=== PATIENT | female | born 1960 | race Hispanic/Latino ===

== ENCOUNTER 2018-02-05 08:29 | Emergency (ER) | payer OTHER ==
[~2018-02-05] VITALS: Ht 162.6 cm; Wt 97.5 kg
[~2018-02-05 08:29] MED LIST: CYMBALTA60 MG PO; PROGESTERONE100 MG PO; TEGRETOL200 MG PO; Z ARMOUR THYROID PO; Z.0.ATENOLOL25 MG PO; Z.0.LEXAPRO10 MG PO; Z.0.PROTONIX40 MG PO; diovan PO
[2018-02-05] MEDS ORDERED: KETOROLAC TROMETHAMINE 60 MG/2 ML VIAL IM ONE (09:15)
[2018-02-05 11:00] VITALS: BP 142/80
== END 2018-02-05 11:06 | disposition home or self-care (01) ==
LOC: ER 08:29
DX: M54.2 Cervicalgia (principal); S16.1XXA Strain of muscle, fascia and tendon at neck level, initial encounter; M54.5 Low back pain; V43.62XA Car passenger injured in collision with other type car in traffic accident, initial encounter; Y92.488 Other paved roadways as the place of occurrence of the external cause
CPT/HCPCS: 99282; J1885

== ENCOUNTER 2021-09-06 15:01 | Inpatient (IN) | payer OTHER ==
[~2021-09-06] VITALS: Ht 162.6 cm; Wt 95.7 kg
[~2021-09-06 15:01] MED LIST changes: +LOSARTAN POTASS25 MG PO; +NATURE-THROID97.5 MG PO
[2021-09-06] MEDS ORDERED: SODIUM CHLORIDE 0.9% 1000ML 1,000 ML IV STA (15:29)
[2021-09-06 15:51] LABS: BASOPHILS % 0.2 % (0.0-1.0); EOSINOPHILS # (AUTO) 0.1 (0.0-0.4); EOSINOPHILS % 1.5 % (0.0-6.0); HEMATOCRIT 38.1 % (34.2-44.1); HEMOGLOBIN 12.5 g/dL (12.0-16.0); LYMPHOCYTES # (AUTO) 1.3 (1.0-3.2); LYMPHOCYTES % 15.2 % (18.0-39.1); MEAN CORPUSCULAR HEMOGLOBIN 29.2 pg (28-32); MEAN CORPUSCULAR HGB CONC 32.8 g/dL (31-35); MONOCYTES # (AUTO) 0.7 (0.2-0.8); MONOCYTES % 8.5 % (4.4-11.3); NEUTROPHILS # (AUTO) 6.4 (2.1-6.9); NEUTROPHILS % 74.3 % (38.7-80.0); PLATELET COUNT 357 x10e3/uL (140-360); RED BLOOD COUNT 4.28 x10e6/uL (3.6-5.1); RED CELL DISTRIBUTION WIDTH 13.1 % (11.7-14.4)
[2021-09-06 16:02] LABS: INR 1.04; PROTHROMBIN TIME 14.4 seconds (11.9-14.5)
[2021-09-06 16:03] LABS: PARTIAL THROMBOPLASTIN TIME 40.3 seconds (23.8-35.5)
[2021-09-06 16:11] LABS: ALANINE AMINOTRANSFERASE 26 IU/L (0-55); ALBUMIN 3.1 g/dL (3.5-5.0); ALBUMIN/GLOBULIN RATIO 0.8 (0.8-2.0); ALKALINE PHOSPHATASE 121 IU/L (40-150); ANION GAP 12.6 mmol/L (8-16); BLOOD UREA NITROGEN 5 mg/dL (7-26); BUN/CREATININE RATIO 9 (6-25); CALCIUM 9.3 mg/dL (8.4-10.2); CARBON DIOXIDE 26 mmol/L (22-29); CHLORIDE 103 mmol/L (98-107); CREATINE KINASE 19 IU/L (29-168); CREATININE, SERUM 0.56 mg/dL (0.57-1.11); EST GLOMERULAR FILTRATION RATE 109 ML/MIN (60-); GLUCOSE 97 mg/dL (74-118); LIPASE 6 U/L (8-78); MAGNESIUM 1.9 MG/DL (1.3-2.1); POTASSIUM 3.6 mmol/L (3.5-5.1); SODIUM 138 mmol/L (136-145)
[2021-09-06] MEDS ORDERED: ONDANSETRON HCL INJ 2MG/ML 2ML 2 MG/ML VIAL IV STA (17:18)
[2021-09-06] MEDS ORDERED: Morphine 4mg Syringe 4 MG/ML INJ IV ONE (17:30)
[2021-09-06] MEDS ORDERED: SODIUM CHLORIDE 0.9% 50ML 50 ML ONE (17:39)
[2021-09-06] MEDS ORDERED: IOPAMIDOL 370 MG/ML 200 ML INFUS..BTL INJ ONE ×2 (17:40→21:59)
[2021-09-06 18:39] LABS: CLARITY,URINE CLEAR (CLEAR); COLOR,URINE YELLOW (YELLOW); KETONES,URINE NEGATIVE (NEGATIVE); LEUKOCYTE ESTERASE ,URINE NEGATIVE (NEGATIVE); NITRITE,URINE NEGATIVE (NEGATIVE); PROTEIN,URINE DIPSTICK NEGATIVE (NEGATIVE); URINE UROBILINOGEN 1 mg/dL (0.2 - 1)
[2021-09-06 18:51] LABS: RBC,URINE 0-5 /HPF (0-5)
[2021-09-06 20:55] VITALS: BP 136/89
[2021-09-06] MEDS: Morphine 4mg Syringe 4 MG/ML INJ IV PRN (20:55)
[2021-09-06] MEDS: SODIUM CHLORIDE 0.9% 1000ML 1,000 ML IV SCH (21:10)
[2021-09-06 21:12] VITALS: BP 136/89
[2021-09-06] MEDS ORDERED: HYDROMORPHONE 1MG/1ML INJ IV ONE (22:15)
[2021-09-06 23:56] VITALS: BP 136/89
[2021-09-07] VITALS (10 sets, daily range): BP systolic 118–143; BP diastolic 71–85
[2021-09-07] MEDS ORDERED: BISACODYL 5 MG TAB EC PO ONE ×2 (00:30)
[2021-09-07] MEDS ORDERED: PANTOPRAZOLE SO40 MG PO (00:33)
[2021-09-07] MEDS ORDERED: HYDROCODON-ACE1 EAC9 PO (00:37)
[2021-09-07] MEDS ORDERED: LEVOFLOXACIN250 MG PO (00:37)
[2021-09-07] MEDS ORDERED: BENICAR20 MG PO (00:37)
[2021-09-07] MEDS ORDERED: NP THYROID60 MG PO (00:37)
[2021-09-07] MEDS ORDERED: SENEXON-S 50-81 EACH PO (00:37)
[2021-09-07] MEDS: HYDROMORPHONE 1MG/1ML INJ IV PRN ×5 (03:00→23:38)
[2021-09-07] MEDS: SODIUM CHLORIDE 0.9% 1000ML 1,000 ML IV SCH ×3 (03:21→22:03)
[2021-09-07] MEDS: ONDANSETRON HCL INJ 2MG/ML 2ML 2 MG/ML VIAL IV PRN ×2 (03:26→20:44)
[2021-09-07 05:36] LABS: BASOPHILS % 0.1 % (0.0-1.0); EOSINOPHILS # (AUTO) 0.1 (0.0-0.4); EOSINOPHILS % 1.7 % (0.0-6.0); HEMATOCRIT 37.7 % (34.2-44.1); LYMPHOCYTES # (AUTO) 0.9 (1.0-3.2); LYMPHOCYTES % 11.7 % (18.0-39.1); MEAN CORPUSCULAR HEMOGLOBIN 28.6 pg (28-32); MEAN CORPUSCULAR HGB CONC 31.8 g/dL (31-35); MONOCYTES # (AUTO) 0.7 (0.2-0.8); MONOCYTES % 8.9 % (4.4-11.3); NEUTROPHILS % 77.1 % (38.7-80.0); PLATELET COUNT 328 x10e3/uL (140-360); RED BLOOD COUNT 4.19 x10e6/uL (3.6-5.1)
[2021-09-07 06:02] LABS: ALANINE AMINOTRANSFERASE 19 IU/L (0-55); ALBUMIN 2.6 g/dL (3.5-5.0); ALBUMIN/GLOBULIN RATIO 0.7 (0.8-2.0); ALKALINE PHOSPHATASE 115 IU/L (40-150); ANION GAP 14.3 mmol/L (8-16); BLOOD UREA NITROGEN < 5 mg/dL (7-26); CALCIUM 9.1 mg/dL (8.4-10.2); CARBON DIOXIDE 22 mmol/L (22-29); CHLORIDE 106 mmol/L (98-107); EST GLOMERULAR FILTRATION RATE 125 ML/MIN (60-); GLUCOSE 97 mg/dL (74-118); POTASSIUM 3.3 mmol/L (3.5-5.1); SODIUM 139 mmol/L (136-145)
[2021-09-07 06:14] LABS: BUN/CREATININE RATIO 10 (6-25)
[2021-09-07] MEDS: Morphine 4mg Syringe 4 MG/ML INJ IV PRN ×2 (06:39→20:44)
[2021-09-07] MEDS ORDERED: POTASSIUM CHLORIDE 20 MEQ TAB CR PO ONE (10:00)
[2021-09-07 16:07] LABS: BODY FLUID COLOR YELLOW; BODY FLUID TYPE PERITONEAL
[2021-09-07 16:09] LABS: BODY FLUID APPEARANCE CLOUDY; RBC,BODY FLUID 1000 cells/uL; WBC,BODY FLUID 2779 cells/uL
[2021-09-07 16:58] LABS: LYMPHOCYTES,BODY FLUID 27 %; MONO/MACROPHG,BODY FLUID 24 %; NEUTROPHILS,BODY FLUID 44 %; OTHER CELLS,BODY FLUID 5 %
[2021-09-07] MEDS ORDERED: CEFTRIAXONE 1 GM in SODIUM CHLORIDE 0.9% 50ML 50 ML IV ONE (23:00)
[2021-09-08] VITALS (7 sets, daily range): BP systolic 142–157; BP diastolic 82–92
[2021-09-08] MEDS: SODIUM CHLORIDE 0.9% 1000ML 1,000 ML IV SCH ×3 (02:53→20:51)
[2021-09-08] MEDS: HYDROMORPHONE 1MG/1ML INJ IV PRN ×5 (04:28→22:04)
[2021-09-08 05:56] LABS: ALANINE AMINOTRANSFERASE 13 IU/L (0-55); ALBUMIN 2.2 g/dL (3.5-5.0); ALBUMIN/GLOBULIN RATIO 0.7 (0.8-2.0); ALKALINE PHOSPHATASE 98 IU/L (40-150); ANION GAP 9.3 mmol/L (8-16); BUN/CREATININE RATIO 11 (6-25); CALCIUM 8.5 mg/dL (8.4-10.2); CARBON DIOXIDE 25 mmol/L (22-29); CHLORIDE 109 mmol/L (98-107); CREATININE, SERUM 0.47 mg/dL (0.57-1.11); EST GLOMERULAR FILTRATION RATE 134 ML/MIN (60-); GLUCOSE 105 mg/dL (74-118); POTASSIUM 3.3 mmol/L (3.5-5.1); SODIUM 140 mmol/L (136-145)
[2021-09-08 06:13] LABS: BLOOD UREA NITROGEN < 5 mg/dL (7-26)
[2021-09-08] MEDS ORDERED: NP THYROID60 MG PO (09:40)
[2021-09-08] MEDS: CEFTRIAXONE 1 GM in SODIUM CHLORIDE 0.9% 50ML 50 ML IV SCH ×2 (09:43→21:00)
[2021-09-08] MEDS: ONDANSETRON HCL INJ 2MG/ML 2ML 2 MG/ML VIAL IV PRN ×3 (09:49→18:04)
[2021-09-08] MEDS ORDERED: PANTOPRAZOLE SOD 40 MG TABEC PO SCH (17:00)
[2021-09-09] VITALS (7 sets, daily range): BP systolic 112–150; BP diastolic 58–88
[2021-09-09] MEDS ORDERED: BISACODYL 5 MG TAB EC PO ONE ×2 (01:30→01:50)
[2021-09-09] MEDS ORDERED: POTASSIUM CHLORIDE 10MEQ EA PO STA (01:34)
[2021-09-09] MEDS: HYDROMORPHONE 1MG/1ML INJ IV PRN ×7 (02:19→23:40)
[2021-09-09] MEDS: SODIUM CHLORIDE 0.9% 1000ML 1,000 ML IV SCH ×3 (03:00→21:21)
[2021-09-09] MEDS ORDERED: POTASSIUM CHLORIDE 10MEQ EA PO SCH (03:45)
[2021-09-09 05:49] LABS: BASOPHILS % 0.1 % (0.0-1.0); EOSINOPHILS # (AUTO) 0.2 (0.0-0.4); EOSINOPHILS % 2.1 % (0.0-6.0); HEMATOCRIT 36.9 % (34.2-44.1); LYMPHOCYTES # (AUTO) 1.1 (1.0-3.2); LYMPHOCYTES % 13.3 % (18.0-39.1); MEAN CORPUSCULAR HEMOGLOBIN 28.8 pg (28-32); MEAN CORPUSCULAR HGB CONC 32.5 g/dL (31-35); MEAN CORPUSCULAR VOLUME 88.7 fL (81-99); MONOCYTES # (AUTO) 0.8 (0.2-0.8); MONOCYTES % 9.3 % (4.4-11.3); PLATELET COUNT 382 x10e3/uL (140-360); RED BLOOD COUNT 4.16 x10e6/uL (3.6-5.1); RED CELL DISTRIBUTION WIDTH 12.6 % (11.7-14.4)
[2021-09-09 06:12] LABS: ALANINE AMINOTRANSFERASE 11 IU/L (0-55); ALBUMIN 2.3 g/dL (3.5-5.0); ALBUMIN/GLOBULIN RATIO 0.7 (0.8-2.0); ALKALINE PHOSPHATASE 110 IU/L (40-150); ANION GAP 11.3 mmol/L (8-16); CALCIUM 8.9 mg/dL (8.4-10.2); CARBON DIOXIDE 25 mmol/L (22-29); CHLORIDE 107 mmol/L (98-107); CREATININE, SERUM 0.47 mg/dL (0.57-1.11); EST GLOMERULAR FILTRATION RATE 134 ML/MIN (60-); GLUCOSE 106 mg/dL (74-118); POTASSIUM 3.3 mmol/L (3.5-5.1); SODIUM 140 mmol/L (136-145)
[2021-09-09 06:16] LABS: BLOOD UREA NITROGEN < 2 mg/dL (7-26); BUN/CREATININE RATIO 4 (6-25)
[2021-09-09] MEDS: THYROID 60 MG TAB PO SCH (06:24)
[2021-09-09] MEDS: LACTULOSE SYRUP 20 GM/30 ML UDC PO PRN (06:44)
[2021-09-09] MEDS: NON-FORMULARY MEDICATION (Progesterone,Micronized (Progesterone) 200 MG) PO SCH (09:00)
[2021-09-09] MEDS ORDERED: POTASSIUM CHLORIDE 20 MEQ TAB CR PO NR ×3 (10:00→15:00)
[2021-09-09] MEDS ORDERED: SIMETHICONE 80 MG CHEW PO NR (10:00)
[2021-09-09] MEDS ORDERED: BISACODYL 5 MG TAB EC PO NR (10:00)
[2021-09-09] MEDS: CEFTRIAXONE 1 GM in SODIUM CHLORIDE 0.9% 50ML 50 ML IV SCH ×2 (10:01→21:00)
[2021-09-09] MEDS: DULOXETINE HCL 30 MG DELAYED RELEASE PO SCH (10:01)
[2021-09-09] MEDS: OLMESARTAN 20 MG TAB PO SCH (10:01)
[2021-09-09] MEDS: ONDANSETRON HCL INJ 2MG/ML 2ML 2 MG/ML VIAL IV PRN ×5 (11:20→23:40)
[2021-09-09] MEDS ORDERED: DIATRIZOATE MEGL/DIATRIZOA SOD 30 ML BTL PO ONE (17:06)
[2021-09-09] MEDS ORDERED: IOPAMIDOL 370 MG/ML 200 ML INFUS..BTL INJ ONE (23:51)
[2021-09-09] MEDS ORDERED: SODIUM CHLORIDE 0.9% 50ML 50 ML ONE (23:51)
[2021-09-10] VITALS (7 sets, daily range): BP systolic 112–143; BP diastolic 61–99
[2021-09-10] MEDS: SIMETHICONE 80 MG CHEW PO SCH ×3 (04:04→17:50)
[2021-09-10] MEDS: ONDANSETRON HCL INJ 2MG/ML 2ML 2 MG/ML VIAL IV PRN ×5 (04:04→20:01)
[2021-09-10] MEDS: HYDROMORPHONE 1MG/1ML INJ IV PRN ×5 (04:04→20:00)
[2021-09-10 05:56] LABS: BASOPHILS % 0.3 % (0.0-1.0); EOSINOPHILS # (AUTO) 0.1 (0.0-0.4); EOSINOPHILS % 1.7 % (0.0-6.0); HEMATOCRIT 33.9 % (34.2-44.1); LYMPHOCYTES # (AUTO) 1.1 (1.0-3.2); LYMPHOCYTES % 13.8 % (18.0-39.1); MEAN CORPUSCULAR HEMOGLOBIN 28.9 pg (28-32); MEAN CORPUSCULAR HGB CONC 32.4 g/dL (31-35); MEAN CORPUSCULAR VOLUME 89.2 fL (81-99); MONOCYTES # (AUTO) 0.7 (0.2-0.8); MONOCYTES % 9.7 % (4.4-11.3); NEUTROPHILS # (AUTO) 5.7 (2.1-6.9); NEUTROPHILS % 74.2 % (38.7-80.0); PLATELET COUNT 400 x10e3/uL (140-360); RED CELL DISTRIBUTION WIDTH 12.6 % (11.7-14.4)
[2021-09-10] MEDS: THYROID 60 MG TAB PO SCH (06:00)
[2021-09-10 06:57] LABS: ANION GAP 13.6 mmol/L (8-16); CALCIUM 8.5 mg/dL (8.4-10.2); CARBON DIOXIDE 23 mmol/L (22-29); CHLORIDE 105 mmol/L (98-107); CREATININE, SERUM 0.47 mg/dL (0.57-1.11); EST GLOMERULAR FILTRATION RATE 134 ML/MIN (60-); GLUCOSE 96 mg/dL (74-118); POTASSIUM 3.6 mmol/L (3.5-5.1); SODIUM 138 mmol/L (136-145)
[2021-09-10 07:14] LABS: BUN/CREATININE RATIO 11 (6-25)
[2021-09-10 07:15] LABS: BLOOD UREA NITROGEN < 5 mg/dL (7-26)
[2021-09-10] MEDS ORDERED: SODIUM CHLORIDE 0.9% 250ML 0 ML ONE (08:01)
[2021-09-10] MEDS: CEFTRIAXONE 1 GM in SODIUM CHLORIDE 0.9% 50ML 50 ML IV SCH ×2 (08:21→20:00)
[2021-09-10] MEDS: NON-FORMULARY MEDICATION (Progesterone,Micronized (Progesterone) 200 MG) PO SCH (08:21)
[2021-09-10] MEDS: FUROSEMIDE INJ 10 MG/ML 4 ML VIAL IV SCH (08:21)
[2021-09-10] MEDS: DULOXETINE HCL 30 MG DELAYED RELEASE PO SCH (08:22)
[2021-09-10] MEDS: OLMESARTAN 20 MG TAB PO SCH (08:22)
[2021-09-10] MEDS: ACETAMINOPHEN 325 MG TAB PO PRN (11:54)
[2021-09-10] MEDS ORDERED: ACETAMINOPHEN 325 MG TAB ONE (11:58)
[2021-09-10] MEDS: LEVOFLOXACIN 500MG/D5W 100ML 100 ML IV SCH (14:26)
[2021-09-10] MEDS: BISACODYL 10 MG SUPP PR SCH (20:00)
[2021-09-11] VITALS (9 sets, daily range): BP systolic 99–128; BP diastolic 60–87
[2021-09-11] MEDS: SIMETHICONE 80 MG CHEW PO SCH ×4 (00:14→17:15)
[2021-09-11 00:19] LABS: CLARITY,URINE SL CLOUDY (CLEAR); COLOR,URINE YELLOW (YELLOW)
[2021-09-11 00:20] LABS: BACTERIA,URINE FEW /HPF; EPITHELIAL CELLS,URINE FEW /LPF; KETONES,URINE NEGATIVE (NEGATIVE); LEUKOCYTE ESTERASE ,URINE 1+ (NEGATIVE); NITRITE,URINE NEGATIVE (NEGATIVE); PROTEIN,URINE DIPSTICK NEGATIVE (NEGATIVE); RBC,URINE 0-5 /HPF (0-5); RENAL EPITHELIAL CELLS,URINE FEW; URINE UROBILINOGEN 1 mg/dL (0.2 - 1); WBC,URINE (MAN) 21-50 /HPF (0-5)
[2021-09-11] MEDS: HYDROMORPHONE 1MG/1ML INJ IV PRN ×5 (01:55→21:20)
[2021-09-11] MEDS: ONDANSETRON HCL INJ 2MG/ML 2ML 2 MG/ML VIAL IV PRN ×3 (01:55→21:20)
[2021-09-11] MEDS: THYROID 60 MG TAB PO SCH (04:22)
[2021-09-11] MEDS: BISACODYL 10 MG SUPP PR SCH (08:00)
[2021-09-11] MEDS: CEFTRIAXONE 1 GM in SODIUM CHLORIDE 0.9% 50ML 50 ML IV SCH (08:45)
[2021-09-11] MEDS: FUROSEMIDE INJ 10 MG/ML 4 ML VIAL IV SCH (08:45)
[2021-09-11] MEDS: DULOXETINE HCL 30 MG DELAYED RELEASE PO SCH (08:50)
[2021-09-11] MEDS: NON-FORMULARY MEDICATION (Progesterone,Micronized (Progesterone) 200 MG) PO SCH (09:00)
[2021-09-11] MEDS: OLMESARTAN 20 MG TAB PO SCH (09:00)
[2021-09-11] MEDS: LEVOFLOXACIN 500MG/D5W 100ML 100 ML IV SCH (13:12)
[2021-09-11 17:22] LABS: BODY FLUID COLOR STRAW; BODY FLUID TYPE PERITONEAL
[2021-09-11 17:23] LABS: BODY FLUID APPEARANCE CLOUDY
[2021-09-11 17:46] LABS: BODY FLUID APPEARANCE SL.CLOUDY; BODY FLUID COLOR STRAW; BODY FLUID TYPE PLEURAL
[2021-09-11 18:02] LABS: RBC,BODY FLUID 2000 cells/uL; WBC,BODY FLUID 2815 cells/uL
[2021-09-11 18:10] LABS: RBC,BODY FLUID 1000 cells/uL; WBC,BODY FLUID 738 cells/uL
[2021-09-11 20:04] LABS: LYMPHOCYTES,BODY FLUID 34 %; MONO/MACROPHG,BODY FLUID 53 %; NEUTROPHILS,BODY FLUID 2 %; OTHER CELLS,BODY FLUID 11 %
[2021-09-11 20:42] LABS: LYMPHOCYTES,BODY FLUID 33 %; MONO/MACROPHG,BODY FLUID 16 %; NEUTROPHILS,BODY FLUID 51 %
[2021-09-11] MEDS: MEROPENEM 500 MG in SODIUM CHLORIDE 0.9% 50ML 50 ML IV SCH (22:00)
[2021-09-12 04:59] VITALS: BP 131/69
[2021-09-12] MEDS: ONDANSETRON HCL INJ 2MG/ML 2ML 2 MG/ML VIAL IV PRN ×2 (05:15→22:15)
[2021-09-12] MEDS: HYDROMORPHONE 1MG/1ML INJ IV PRN ×4 (05:15→22:15)
[2021-09-12] MEDS: SIMETHICONE 80 MG CHEW PO SCH ×4 (05:30→17:16)
[2021-09-12] MEDS: THYROID 60 MG TAB PO SCH (05:30)
[2021-09-12] MEDS: MEROPENEM 500 MG in SODIUM CHLORIDE 0.9% 50ML 50 ML IV SCH ×2 (05:30→14:42)
[2021-09-12 06:03] LABS: BASOPHILS % 0.1 % (0.0-1.0); EOSINOPHILS # (AUTO) 0.1 (0.0-0.4); EOSINOPHILS % 1.3 % (0.0-6.0); HEMATOCRIT 37.4 % (34.2-44.1); HEMOGLOBIN 12.4 g/dL (12.0-16.0); LYMPHOCYTES # (AUTO) 1.2 (1.0-3.2); LYMPHOCYTES % 14.5 % (18.0-39.1); MEAN CORPUSCULAR HEMOGLOBIN 28.8 pg (28-32); MEAN CORPUSCULAR HGB CONC 33.2 g/dL (31-35); MEAN CORPUSCULAR VOLUME 86.8 fL (81-99); MONOCYTES # (AUTO) 0.9 (0.2-0.8); MONOCYTES % 10.5 % (4.4-11.3); NEUTROPHILS % 73.1 % (38.7-80.0); PLATELET COUNT 442 x10e3/uL (140-360); RED BLOOD COUNT 4.31 x10e6/uL (3.6-5.1); RED CELL DISTRIBUTION WIDTH 12.4 % (11.7-14.4)
[2021-09-12 06:38] LABS: ALANINE AMINOTRANSFERASE 7 IU/L (0-55); ALBUMIN 2.3 g/dL (3.5-5.0); ALBUMIN/GLOBULIN RATIO 0.7 (0.8-2.0); ALKALINE PHOSPHATASE 113 IU/L (40-150); ANION GAP 14.4 mmol/L (8-16); BLOOD UREA NITROGEN < 5 mg/dL (7-26); CARBON DIOXIDE 28 mmol/L (22-29); CHLORIDE 97 mmol/L (98-107); CREATININE, SERUM 0.53 mg/dL (0.57-1.11); EST GLOMERULAR FILTRATION RATE 117 ML/MIN (60-); GLUCOSE 107 mg/dL (74-118); POTASSIUM 3.4 mmol/L (3.5-5.1); SODIUM 136 mmol/L (136-145)
[2021-09-12 06:45] LABS: BUN/CREATININE RATIO 9 (6-25)
[2021-09-12 08:03] VITALS: BP 100/61
[2021-09-12 08:04] VITALS: BP 100/61
[2021-09-12 08:26] LABS: CLARITY,URINE CLEAR (CLEAR); COLOR,URINE YELLOW (YELLOW); LEUKOCYTE ESTERASE ,URINE NEGATIVE (NEGATIVE); NITRITE,URINE NEGATIVE (NEGATIVE); PROTEIN,URINE DIPSTICK NEGATIVE (NEGATIVE)
[2021-09-12 08:27] LABS: BACTERIA,URINE FEW /HPF; EPITHELIAL CELLS,URINE FEW /LPF; KETONES,URINE NEGATIVE (NEGATIVE); URINE UROBILINOGEN 0.2 mg/dL (0.2 - 1); WBC,URINE (MAN) 0-5 /HPF (0-5)
[2021-09-12] MEDS: OLMESARTAN 20 MG TAB PO SCH (09:00)
[2021-09-12] MEDS: NON-FORMULARY MEDICATION (Progesterone,Micronized (Progesterone) 200 MG) PO SCH (09:00)
[2021-09-12] MEDS: FUROSEMIDE INJ 10 MG/ML 4 ML VIAL IV SCH (09:27)
[2021-09-12] MEDS: DULOXETINE HCL 30 MG DELAYED RELEASE PO SCH (09:28)
[2021-09-12 11:39] VITALS: BP 107/65
[2021-09-12 15:44] VITALS: BP 103/64
[2021-09-12 19:38] VITALS: BP 105/69
[2021-09-13] VITALS (8 sets, daily range): BP systolic 105–115; BP diastolic 65–75
[2021-09-13] MEDS ORDERED: MEROPENEM 1 GM in SODIUM CHLORIDE 0.9% 100 ML IV SCH (02:30)
[2021-09-13] MEDS: ONDANSETRON HCL INJ 2MG/ML 2ML 2 MG/ML VIAL IV PRN ×5 (03:40→23:50)
[2021-09-13] MEDS: HYDROMORPHONE 1MG/1ML INJ IV PRN ×5 (03:40→23:40)
[2021-09-13] MEDS: THYROID 60 MG TAB PO SCH (05:19)
[2021-09-13] MEDS: SIMETHICONE 80 MG CHEW PO SCH ×5 (05:19→23:40)
[2021-09-13] MEDS: NON-FORMULARY MEDICATION (Progesterone,Micronized (Progesterone) 200 MG) PO SCH (09:00)
[2021-09-13] MEDS: FUROSEMIDE INJ 10 MG/ML 4 ML VIAL IV SCH (09:04)
[2021-09-13] MEDS: OLMESARTAN 20 MG TAB PO SCH (09:04)
[2021-09-13] MEDS: DULOXETINE HCL 30 MG DELAYED RELEASE PO SCH (09:04)
[2021-09-13] MEDS: MEROPENEM 500 MG in SODIUM CHLORIDE 0.9% 50ML 50 ML IV SCH ×2 (09:04→17:17)
[2021-09-13] MEDS: LACTULOSE SYRUP 20 GM/30 ML UDC PO PRN (12:09)
[2021-09-14] VITALS (8 sets, daily range): BP systolic 103–132; BP diastolic 67–88
[2021-09-14] MEDS: MEROPENEM 500 MG in SODIUM CHLORIDE 0.9% 50ML 50 ML IV SCH ×3 (00:57→17:10)
[2021-09-14] MEDS: SIMETHICONE 80 MG CHEW PO SCH ×3 (05:09→17:10)
[2021-09-14] MEDS: THYROID 60 MG TAB PO SCH (05:09)
[2021-09-14] MEDS: ONDANSETRON HCL INJ 2MG/ML 2ML 2 MG/ML VIAL IV PRN ×3 (05:10→21:43)
[2021-09-14] MEDS: ACETAMINOPHEN 325 MG TAB PO PRN ×3 (05:10→15:08)
[2021-09-14] MEDS: NON-FORMULARY MEDICATION (Progesterone,Micronized (Progesterone) 200 MG) PO SCH (09:00)
[2021-09-14] MEDS: FUROSEMIDE INJ 10 MG/ML 4 ML VIAL IV SCH (09:16)
[2021-09-14] MEDS: OLMESARTAN 20 MG TAB PO SCH (09:18)
[2021-09-14] MEDS: FLUCONAZOLE 100 MG TAB PO SCH (09:18)
[2021-09-14] MEDS: DULOXETINE HCL 30 MG DELAYED RELEASE PO SCH (09:18)
[2021-09-14] MEDS ORDERED: BISACODYL 10 MG SUPP PR ONE (17:30)
[2021-09-14] MEDS: HYDROMORPHONE 1MG/1ML INJ IV PRN ×2 (18:03→21:43)
[2021-09-15] VITALS (7 sets, daily range): BP systolic 112–125; BP diastolic 66–76
[2021-09-15] MEDS: SIMETHICONE 80 MG CHEW PO SCH ×4 (00:46→18:00)
[2021-09-15] MEDS: MEROPENEM 500 MG in SODIUM CHLORIDE 0.9% 50ML 50 ML IV SCH ×3 (00:47→18:45)
[2021-09-15] MEDS: ACETAMINOPHEN 325 MG TAB PO PRN (00:47)
[2021-09-15] MEDS: ONDANSETRON HCL INJ 2MG/ML 2ML 2 MG/ML VIAL IV PRN ×4 (02:37→18:43)
[2021-09-15] MEDS: HYDROMORPHONE 1MG/1ML INJ IV PRN ×4 (02:37→18:43)
[2021-09-15] MEDS: THYROID 60 MG TAB PO SCH (05:44)
[2021-09-15 06:31] LABS: BASOPHILS % 0.3 % (0.0-1.0); EOSINOPHILS # (AUTO) 0.2 (0.0-0.4); EOSINOPHILS % 2.1 % (0.0-6.0); HEMATOCRIT 38.4 % (34.2-44.1); HEMOGLOBIN 11.9 g/dL (12.0-16.0); LYMPHOCYTES # (AUTO) 1.4 (1.0-3.2); LYMPHOCYTES % 18.7 % (18.0-39.1); MEAN CORPUSCULAR HEMOGLOBIN 28.4 pg (28-32); MEAN CORPUSCULAR VOLUME 91.6 fL (81-99); MONOCYTES # (AUTO) 0.7 (0.2-0.8); MONOCYTES % 8.8 % (4.4-11.3); NEUTROPHILS # (AUTO) 5.3 (2.1-6.9); NEUTROPHILS % 69.7 % (38.7-80.0); PLATELET COUNT 460 x10e3/uL (140-360); RED BLOOD COUNT 4.19 x10e6/uL (3.6-5.1); RED CELL DISTRIBUTION WIDTH 12.5 % (11.7-14.4)
[2021-09-15 07:11] LABS: ALBUMIN 2.2 g/dL (3.5-5.0); ALBUMIN/GLOBULIN RATIO 0.7 (0.8-2.0); ANION GAP 9.5 mmol/L (8-16); CALCIUM 8.3 mg/dL (8.4-10.2); CREATININE, SERUM 0.52 mg/dL (0.57-1.11); POTASSIUM 3.5 mmol/L (3.5-5.1)
[2021-09-15] MEDS: FLUCONAZOLE 100 MG TAB PO SCH (08:44)
[2021-09-15] MEDS: OLMESARTAN 20 MG TAB PO SCH (08:44)
[2021-09-15] MEDS: FUROSEMIDE INJ 10 MG/ML 4 ML VIAL IV SCH (08:44)
[2021-09-15] MEDS: DULOXETINE HCL 30 MG DELAYED RELEASE PO SCH (08:44)
[2021-09-15] MEDS: NON-FORMULARY MEDICATION (Progesterone,Micronized (Progesterone) 200 MG) PO SCH (09:00)
[2021-09-15] MEDS ORDERED: LIDOCAINE HCL 2% LOCAL INJ 5 ML SDV VIAL INJ ONE (12:35)
[2021-09-15] MEDS ORDERED: PROPOFOL IV EMULSION 10 MG/ML 20 ML VIAL ONE (12:35)
[2021-09-15] MEDS ORDERED: ONDANSETRON HCL INJ 2MG/ML 2ML 2 MG/ML VIAL ONE (12:35)
[2021-09-15] MEDS ORDERED: SEVOFLURANE INHAL SOLN 250 ML PEN BTL ONE (12:35)
[2021-09-15] MEDS ORDERED: EPHEDRINE SULFATE INJ 50 MG/ML VIAL ONE (12:35)
[2021-09-15] MEDS ORDERED: POVIDONE IODINE 0.05% 0.05 % ML PO ONE (12:35)
[2021-09-15] MEDS ORDERED: DEXAMETHASONE SOD PHOS INJ 4 MG/ML SDV ONE (12:35)
[2021-09-15] MEDS ORDERED: ROCURONIUM BROMIDE 10 MG/ML 5ML VIAL IV ONE (12:35)
[2021-09-15] MEDS ORDERED: ATROPINE SULFATE 1 MG/ML VIAL ONE (12:35)
[2021-09-15] MEDS ORDERED: NEOSTIGMINE 1 MG/ML 10ML VIAL ONE (12:35)
[2021-09-15] MEDS ORDERED: FENTANYL CITRATE/PF 100MCG/2 ML INJ ONE (13:11)
[2021-09-15] MEDS ORDERED: MIDAZOLAM HCL 2 MG/2 ML VIAL ONE (13:11)
[2021-09-15] MEDS ORDERED: BUPIVACAINE 0.25% 30ML SDV ONE (15:11)
[2021-09-15] MEDS ORDERED: SODIUM CHLORIDE 0.9% 1000ML 1,000 ML IV SCH (17:15)
[2021-09-16] VITALS (8 sets, daily range): BP systolic 110–124; BP diastolic 66–82
[2021-09-16] MEDS: SIMETHICONE 80 MG CHEW PO SCH ×4 (00:02→17:20)
[2021-09-16] MEDS: ONDANSETRON HCL INJ 2MG/ML 2ML 2 MG/ML VIAL IV PRN ×3 (01:45→19:48)
[2021-09-16] MEDS: HYDROMORPHONE 1MG/1ML INJ IV PRN ×3 (01:45→19:48)
[2021-09-16] MEDS: MEROPENEM 500 MG in SODIUM CHLORIDE 0.9% 50ML 50 ML IV SCH ×3 (01:53→17:20)
[2021-09-16] MEDS: THYROID 60 MG TAB PO SCH (05:26)
[2021-09-16 06:44] LABS: BASOPHILS % 0.1 % (0.0-1.0); HEMATOCRIT 36.3 % (34.2-44.1); HEMOGLOBIN 11.9 g/dL (12.0-16.0); LYMPHOCYTES # (AUTO) 1.1 (1.0-3.2); LYMPHOCYTES % 10.3 % (18.0-39.1); MEAN CORPUSCULAR HEMOGLOBIN 28.5 pg (28-32); MEAN CORPUSCULAR HGB CONC 32.8 g/dL (31-35); MEAN CORPUSCULAR VOLUME 87.1 fL (81-99); MONOCYTES # (AUTO) 0.5 (0.2-0.8); MONOCYTES % 4.7 % (4.4-11.3); NEUTROPHILS # (AUTO) 8.7 (2.1-6.9); NEUTROPHILS % 84.2 % (38.7-80.0); PLATELET COUNT 545 x10e3/uL (140-360); RED BLOOD COUNT 4.17 x10e6/uL (3.6-5.1); RED CELL DISTRIBUTION WIDTH 12.5 % (11.7-14.4)
[2021-09-16 07:12] LABS: ALBUMIN 2.1 g/dL (3.5-5.0); ALBUMIN/GLOBULIN RATIO 0.6 (0.8-2.0); ANION GAP 9.3 mmol/L (8-16); CALCIUM 8.8 mg/dL (8.4-10.2); CREATININE, SERUM 0.55 mg/dL (0.57-1.11); POTASSIUM 4.3 mmol/L (3.5-5.1)
[2021-09-16] MEDS: NON-FORMULARY MEDICATION (Progesterone,Micronized (Progesterone) 200 MG) PO SCH (09:00)
[2021-09-16] MEDS: FUROSEMIDE INJ 10 MG/ML 4 ML VIAL IV SCH (09:46)
[2021-09-16] MEDS: ACETAMINOPHEN 325 MG TAB PO PRN ×2 (09:49→15:55)
[2021-09-16] MEDS: FLUCONAZOLE 100 MG TAB PO SCH (09:50)
[2021-09-16] MEDS: OLMESARTAN 20 MG TAB PO SCH (09:50)
[2021-09-16] MEDS: DULOXETINE HCL 30 MG DELAYED RELEASE PO SCH (09:50)
[2021-09-16] MEDS ORDERED: IOPAMIDOL 370 MG/ML 200 ML INFUS..BTL INJ ONE (12:58)
[2021-09-16] MEDS ORDERED: SODIUM CHLORIDE 0.9% 50ML 50 ML ONE (12:58)
[2021-09-17] VITALS (8 sets, daily range): BP systolic 97–123; BP diastolic 57–73
[2021-09-17] MEDS: SIMETHICONE 80 MG CHEW PO SCH ×5 (00:18→23:38)
[2021-09-17] MEDS: ONDANSETRON HCL INJ 2MG/ML 2ML 2 MG/ML VIAL IV PRN ×5 (00:42→20:38)
[2021-09-17] MEDS: HYDROMORPHONE 1MG/1ML INJ IV PRN ×5 (00:42→20:37)
[2021-09-17] MEDS: MEROPENEM 500 MG in SODIUM CHLORIDE 0.9% 50ML 50 ML IV SCH ×3 (00:42→17:22)
[2021-09-17] MEDS: THYROID 60 MG TAB PO SCH (04:57)
[2021-09-17 07:13] LABS: BASOPHILS % 0.4 % (0.0-1.0); EOSINOPHILS # (AUTO) 0.1 (0.0-0.4); EOSINOPHILS % 1.4 % (0.0-6.0); HEMATOCRIT 38.3 % (34.2-44.1); HEMOGLOBIN 12.3 g/dL (12.0-16.0); LYMPHOCYTES # (AUTO) 1.6 (1.0-3.2); LYMPHOCYTES % 19.3 % (18.0-39.1); MEAN CORPUSCULAR HEMOGLOBIN 28.3 pg (28-32); MEAN CORPUSCULAR HGB CONC 32.1 g/dL (31-35); MONOCYTES # (AUTO) 0.7 (0.2-0.8); MONOCYTES % 8.5 % (4.4-11.3); NEUTROPHILS # (AUTO) 5.9 (2.1-6.9); NEUTROPHILS % 69.7 % (38.7-80.0); PLATELET COUNT 497 x10e3/uL (140-360); RED BLOOD COUNT 4.35 x10e6/uL (3.6-5.1); RED CELL DISTRIBUTION WIDTH 12.6 % (11.7-14.4)
[2021-09-17 07:34] LABS: ALBUMIN 2.3 g/dL (3.5-5.0); ALBUMIN/GLOBULIN RATIO 0.7 (0.8-2.0); ANION GAP 14.9 mmol/L (8-16); CALCIUM 8.9 mg/dL (8.4-10.2); CREATININE, SERUM 0.63 mg/dL (0.57-1.11); POTASSIUM 3.9 mmol/L (3.5-5.1)
[2021-09-17] MEDS: NON-FORMULARY MEDICATION (Progesterone,Micronized (Progesterone) 200 MG) PO SCH (09:00)
[2021-09-17] MEDS: FUROSEMIDE INJ 10 MG/ML 4 ML VIAL IV SCH (09:03)
[2021-09-17] MEDS: OLMESARTAN 20 MG TAB PO SCH (09:04)
[2021-09-17] MEDS: DULOXETINE HCL 30 MG DELAYED RELEASE PO SCH (09:04)
[2021-09-17] MEDS: ACETAMINOPHEN 325 MG TAB PO PRN (11:35)
[2021-09-17] MEDS: SENNOSIDES 8.6 MG TAB PO SCH (17:22)
[2021-09-18] VITALS (8 sets, daily range): BP systolic 94–127; BP diastolic 62–84
[2021-09-18] MEDS: ONDANSETRON HCL INJ 2MG/ML 2ML 2 MG/ML VIAL IV PRN ×5 (01:58→22:30)
[2021-09-18] MEDS: MEROPENEM 500 MG in SODIUM CHLORIDE 0.9% 50ML 50 ML IV SCH ×3 (01:58→16:57)
[2021-09-18] MEDS: HYDROMORPHONE 1MG/1ML INJ IV PRN ×5 (01:58→22:30)
[2021-09-18] MEDS: SIMETHICONE 80 MG CHEW PO SCH ×3 (05:17→16:57)
[2021-09-18] MEDS: THYROID 60 MG TAB PO SCH (05:17)
[2021-09-18] MEDS: NON-FORMULARY MEDICATION (Progesterone,Micronized (Progesterone) 200 MG) PO SCH (09:00)
[2021-09-18] MEDS: FUROSEMIDE INJ 10 MG/ML 4 ML VIAL IV SCH (09:22)
[2021-09-18] MEDS: OLMESARTAN 20 MG TAB PO SCH (09:22)
[2021-09-18] MEDS: DOCUSATE SODIUM 100 MG CAP PO SCH (09:22)
[2021-09-18] MEDS: SENNOSIDES 8.6 MG TAB PO SCH ×2 (09:22→16:50)
[2021-09-18] MEDS: DULOXETINE HCL 30 MG DELAYED RELEASE PO SCH (09:22)
[2021-09-19] VITALS (7 sets, daily range): BP systolic 102–121; BP diastolic 57–79
[2021-09-19] MEDS: SIMETHICONE 80 MG CHEW PO SCH ×5 (00:52→23:22)
[2021-09-19] MEDS: MEROPENEM 500 MG in SODIUM CHLORIDE 0.9% 50ML 50 ML IV SCH ×3 (02:00→17:40)
[2021-09-19] MEDS: ONDANSETRON HCL INJ 2MG/ML 2ML 2 MG/ML VIAL IV PRN ×3 (02:54→20:52)
[2021-09-19] MEDS: HYDROMORPHONE 1MG/1ML INJ IV PRN ×5 (02:54→20:56)
[2021-09-19] MEDS: THYROID 60 MG TAB PO SCH (06:33)
[2021-09-19] MEDS: ACETAMINOPHEN 325 MG TAB PO PRN ×4 (06:34→23:23)
[2021-09-19] MEDS: DULOXETINE HCL 30 MG DELAYED RELEASE PO SCH (09:00)
[2021-09-19] MEDS: NON-FORMULARY MEDICATION (Progesterone,Micronized (Progesterone) 200 MG) PO SCH (09:00)
[2021-09-19] MEDS: OLMESARTAN 20 MG TAB PO SCH (09:00)
[2021-09-19] MEDS: DOCUSATE SODIUM 100 MG CAP PO SCH (09:00)
[2021-09-19] MEDS: SENNOSIDES 8.6 MG TAB PO SCH ×2 (09:00→16:31)
[2021-09-19] MEDS: FUROSEMIDE INJ 10 MG/ML 4 ML VIAL IV SCH (09:13)
[2021-09-19] MEDS ORDERED: MIDAZOLAM HCL 2 MG/2 ML VIAL ONE (09:34)
[2021-09-19] MEDS ORDERED: FENTANYL CITRATE/PF 100MCG/2 ML INJ ONE (09:35)
[2021-09-19] MEDS ORDERED: SODIUM CHLORIDE 0.9% 250ML 250 ML ONE (09:35)
[2021-09-19] MEDS: CENTRAL TPN FORMULA 1 BAG IV SCH (20:30)
[2021-09-20] VITALS (8 sets, daily range): BP systolic 104–118; BP diastolic 60–78
[2021-09-20] MEDS: ONDANSETRON HCL INJ 2MG/ML 2ML 2 MG/ML VIAL IV PRN ×5 (01:15→21:55)
[2021-09-20] MEDS: HYDROMORPHONE 1MG/1ML INJ IV PRN ×4 (01:15→13:22)
[2021-09-20] MEDS: MEROPENEM 500 MG in SODIUM CHLORIDE 0.9% 50ML 50 ML IV SCH ×3 (02:05→17:40)
[2021-09-20] MEDS: THYROID 60 MG TAB PO SCH (05:22)
[2021-09-20] MEDS: SIMETHICONE 80 MG CHEW PO SCH ×4 (05:39→23:10)
[2021-09-20 07:12] LABS: ALBUMIN 2.4 g/dL (3.5-5.0); ALBUMIN/GLOBULIN RATIO 0.6 (0.8-2.0); ANION GAP 14.6 mmol/L (8-16); CREATININE, SERUM 0.7 mg/dL (0.57-1.11); POTASSIUM 4.6 mmol/L (3.5-5.1)
[2021-09-20] MEDS: ACETAMINOPHEN 325 MG TAB PO PRN (07:49)
[2021-09-20] MEDS: NON-FORMULARY MEDICATION (Progesterone,Micronized (Progesterone) 200 MG) PO SCH ×2 (09:00→09:55)
[2021-09-20] MEDS ORDERED: HYDROMORPHONE HCL 2 MG TAB PO PRN (09:15)
[2021-09-20] MEDS: FUROSEMIDE INJ 10 MG/ML 4 ML VIAL IV SCH (09:55)
[2021-09-20] MEDS: DULOXETINE HCL 30 MG DELAYED RELEASE PO SCH (09:56)
[2021-09-20] MEDS: SENNOSIDES 8.6 MG TAB PO SCH ×3 (09:56→20:37)
[2021-09-20] MEDS: DOCUSATE SODIUM 100 MG CAP PO SCH (09:56)
[2021-09-20] MEDS: OLMESARTAN 20 MG TAB PO SCH (09:56)
[2021-09-20] MEDS: MORPHINE SULFATE 30 MG TAB ER PO PRN (12:04)
[2021-09-20] MEDS: BELLADONNA/OPIUM 30 MG SUPP RC PRN (12:04)
[2021-09-20] MEDS: HYDROMORPHONE 2MG/ML 2 MG/ML ML IV PRN ×2 (17:40→21:55)
[2021-09-20] MEDS: CENTRAL TPN FORMULA 1 BAG IV SCH (20:38)
[2021-09-20] MEDS ORDERED: SENNOSIDES 8.6 MG TAB PO SCH (21:00)
[2021-09-21] VITALS (8 sets, daily range): BP systolic 94–123; BP diastolic 61–79
[2021-09-21] MEDS: BELLADONNA/OPIUM 30 MG SUPP RC PRN ×2 (01:01→22:05)
[2021-09-21] MEDS: MORPHINE SULFATE 30 MG TAB ER PO PRN ×2 (01:08→16:46)
[2021-09-21] MEDS ORDERED: SODIUM CHLORIDE 0.9% 250ML 250 ML ONE (01:59)
[2021-09-21] MEDS: ONDANSETRON HCL INJ 2MG/ML 2ML 2 MG/ML VIAL IV PRN ×4 (02:00→19:08)
[2021-09-21] MEDS: HYDROMORPHONE 2MG/ML 2 MG/ML ML IV PRN ×5 (02:00→23:00)
[2021-09-21] MEDS: MEROPENEM 500 MG in SODIUM CHLORIDE 0.9% 50ML 50 ML IV SCH ×3 (02:18→16:46)
[2021-09-21] MEDS: SIMETHICONE 80 MG CHEW PO SCH ×4 (05:38→23:00)
[2021-09-21] MEDS: THYROID 60 MG TAB PO SCH (05:38)
[2021-09-21 05:47] LABS: BASOPHILS % 0.3 % (0.0-1.0); EOSINOPHILS # (AUTO) 0.3 (0.0-0.4); EOSINOPHILS % 2.8 % (0.0-6.0); HEMATOCRIT 40.3 % (34.2-44.1); HEMOGLOBIN 12.9 g/dL (12.0-16.0); LYMPHOCYTES # (AUTO) 1.7 (1.0-3.2); MEAN CORPUSCULAR HEMOGLOBIN 28.3 pg (28-32); MEAN CORPUSCULAR VOLUME 88.4 fL (81-99); MONOCYTES # (AUTO) 0.8 (0.2-0.8); MONOCYTES % 8.6 % (4.4-11.3); NEUTROPHILS # (AUTO) 6.1 (2.1-6.9); NEUTROPHILS % 68.2 % (38.7-80.0); PLATELET COUNT 461 x10e3/uL (140-360); RED BLOOD COUNT 4.56 x10e6/uL (3.6-5.1); RED CELL DISTRIBUTION WIDTH 12.9 % (11.7-14.4)
[2021-09-21 06:24] LABS: ANION GAP 12.5 mmol/L (8-16); CREATININE, SERUM 0.59 mg/dL (0.57-1.11); POTASSIUM 4.5 mmol/L (3.5-5.1)
[2021-09-21] MEDS: NON-FORMULARY MEDICATION (Progesterone,Micronized (Progesterone) 200 MG) PO SCH (09:00)
[2021-09-21] MEDS: DOCUSATE SODIUM 100 MG CAP PO SCH (09:05)
[2021-09-21] MEDS: DULOXETINE HCL 30 MG DELAYED RELEASE PO SCH (09:05)
[2021-09-21] MEDS: OLMESARTAN 20 MG TAB PO SCH (09:05)
[2021-09-21] MEDS: FUROSEMIDE INJ 10 MG/ML 4 ML VIAL IV SCH (09:05)
[2021-09-21] MEDS: SENNOSIDES 8.6 MG TAB PO SCH ×3 (09:06→20:41)
[2021-09-21] MEDS: ACETAMINOPHEN 325 MG TAB PO PRN (11:25)
[2021-09-21] MEDS ORDERED: MINERAL OIL 132 ML BTL PR ONE ×2 (20:00→22:00)
[2021-09-21] MEDS: CENTRAL TPN FORMULA 1 BAG IV SCH (20:42)
[2021-09-22] VITALS: BP 113/71
[2021-09-22] MEDS ORDERED: MAGNESIUM HYDROXIDE 30 ML UDC PO ONE ×2 (00:30→04:00)
[2021-09-22] MEDS ORDERED: BISACODYL 5 MG TAB EC PO ONE (01:00)
[2021-09-22] MEDS: MEROPENEM 500 MG in SODIUM CHLORIDE 0.9% 50ML 50 ML IV SCH ×3 (01:13→16:50)
[2021-09-22] MEDS: ONDANSETRON HCL INJ 2MG/ML 2ML 2 MG/ML VIAL IV PRN ×3 (01:56→11:10)
[2021-09-22] MEDS: HYDROMORPHONE 2MG/ML 2 MG/ML ML IV PRN ×4 (03:00→19:43)
[2021-09-22 04:00] VITALS: BP 101/74
[2021-09-22] MEDS: MORPHINE SULFATE 30 MG TAB ER PO PRN ×2 (04:32→16:45)
[2021-09-22] MEDS: THYROID 60 MG TAB PO SCH (05:44)
[2021-09-22] MEDS: SIMETHICONE 80 MG CHEW PO SCH ×4 (05:44→23:46)
[2021-09-22] MEDS: BELLADONNA/OPIUM 30 MG SUPP RC PRN (05:46)
[2021-09-22 08:30] VITALS: BP 102/84
[2021-09-22 08:38] VITALS: BP 102/84
[2021-09-22] MEDS: OLMESARTAN 20 MG TAB PO SCH (08:44)
[2021-09-22] MEDS: DULOXETINE HCL 30 MG DELAYED RELEASE PO SCH (08:46)
[2021-09-22] MEDS: FUROSEMIDE INJ 10 MG/ML 4 ML VIAL IV SCH (08:47)
[2021-09-22] MEDS: NON-FORMULARY MEDICATION (Progesterone,Micronized (Progesterone) 200 MG) PO SCH (08:47)
[2021-09-22] MEDS: ACETAMINOPHEN 325 MG TAB PO PRN (08:54)
[2021-09-22] MEDS: DOCUSATE SODIUM 100 MG CAP PO SCH (11:10)
[2021-09-22] MEDS: SENNOSIDES 8.6 MG TAB PO SCH ×3 (11:10→21:00)
[2021-09-22] MEDS ORDERED: FENTANYL 50 MCG/HR PATCH TOP SCH (11:30)
[2021-09-22] MEDS ORDERED: LORAZEPAM INJ 2 MG/ML VIAL IV ONE ×2 (18:15→22:30)
[2021-09-22 20:00] VITALS: BP 102/84
[2021-09-22 20:21] VITALS: BP 119/73
[2021-09-22] MEDS: CENTRAL TPN FORMULA 1 BAG IV SCH (20:56)
[2021-09-23] VITALS (8 sets, daily range): BP systolic 99–118; BP diastolic 68–79
[2021-09-23] MEDS: MEROPENEM 500 MG in SODIUM CHLORIDE 0.9% 50ML 50 ML IV SCH (01:32)
[2021-09-23] MEDS: ONDANSETRON HCL INJ 2MG/ML 2ML 2 MG/ML VIAL IV PRN ×4 (03:47→17:10)
[2021-09-23] MEDS: HYDROMORPHONE 2MG/ML 2 MG/ML ML IV PRN ×5 (03:47→22:43)
[2021-09-23] MEDS: THYROID 60 MG TAB PO SCH (06:01)
[2021-09-23] MEDS: SIMETHICONE 80 MG CHEW PO SCH ×3 (06:01→16:52)
[2021-09-23 07:46] LABS: ALBUMIN 2.2 g/dL (3.5-5.0); ALBUMIN/GLOBULIN RATIO 0.6 (0.8-2.0); ANION GAP 13.1 mmol/L (8-16); CALCIUM 8.7 mg/dL (8.4-10.2); CREATININE, SERUM 0.56 mg/dL (0.57-1.11); POTASSIUM 5.1 mmol/L (3.5-5.1)
[2021-09-23] MEDS: DEXAMETHASONE SOD PHOS INJ 4 MG/ML SDV IV SCH ×2 (08:32→21:00)
[2021-09-23] MEDS: FUROSEMIDE INJ 10 MG/ML 4 ML VIAL IV SCH (08:32)
[2021-09-23] MEDS: DOCUSATE SODIUM 100 MG CAP PO SCH (08:33)
[2021-09-23] MEDS: DULOXETINE HCL 30 MG DELAYED RELEASE PO SCH (08:33)
[2021-09-23] MEDS: SENNOSIDES 8.6 MG TAB PO SCH ×3 (08:33→21:02)
[2021-09-23] MEDS: OLMESARTAN 20 MG TAB PO SCH (12:11)
[2021-09-23] MEDS ORDERED: CENTRAL TPN FORMULA 1 BAG IV SCH (20:00)
[2021-09-24] VITALS: BP 109/65
[2021-09-24] MEDS: SIMETHICONE 80 MG CHEW PO SCH ×4 (00:42→16:58)
[2021-09-24] MEDS: BELLADONNA/OPIUM 30 MG SUPP RC PRN ×2 (00:50→07:04)
[2021-09-24 04:00] VITALS: BP 118/48
[2021-09-24] MEDS: HYDROMORPHONE 2MG/ML 2 MG/ML ML IV PRN ×3 (04:26→16:52)
[2021-09-24] MEDS: THYROID 60 MG TAB PO SCH (05:10)
[2021-09-24 06:30] LABS: BASOPHILS % 0.1 % (0.0-1.0); HEMATOCRIT 36.7 % (34.2-44.1); HEMOGLOBIN 11.4 g/dL (12.0-16.0); LYMPHOCYTES # (AUTO) 1.1 (1.0-3.2); LYMPHOCYTES % 10.2 % (18.0-39.1); MEAN CORPUSCULAR HEMOGLOBIN 28.1 pg (28-32); MEAN CORPUSCULAR HGB CONC 31.1 g/dL (31-35); MEAN CORPUSCULAR VOLUME 90.6 fL (81-99); MONOCYTES # (AUTO) 0.6 (0.2-0.8); MONOCYTES % 5.3 % (4.4-11.3); NEUTROPHILS # (AUTO) 8.9 (2.1-6.9); NEUTROPHILS % 83.6 % (38.7-80.0); PLATELET COUNT 383 x10e3/uL (140-360); RED BLOOD COUNT 4.05 x10e6/uL (3.6-5.1); RED CELL DISTRIBUTION WIDTH 13.1 % (11.7-14.4)
[2021-09-24 07:02] LABS: ALBUMIN 2.4 g/dL (3.5-5.0); ALBUMIN/GLOBULIN RATIO 0.6 (0.8-2.0); ANION GAP 12.7 mmol/L (8-16); CALCIUM 9.6 mg/dL (8.4-10.2); CREATININE, SERUM 0.58 mg/dL (0.57-1.11); MAGNESIUM 2.5 MG/DL (1.3-2.1)
[2021-09-24 07:14] LABS: POTASSIUM 5.7 mmol/L (3.5-5.1)
[2021-09-24 08:18] VITALS: BP 121/78
[2021-09-24] MEDS ORDERED: SOD POLYSTYRENE SULFONATE SUSP 15 GM/60 ML BTL PO ONE (08:30)
[2021-09-24] MEDS: ONDANSETRON HCL INJ 2MG/ML 2ML 2 MG/ML VIAL IV PRN ×2 (08:45→16:52)
[2021-09-24] MEDS: DEXAMETHASONE SOD PHOS INJ 4 MG/ML SDV IV SCH (09:12)
[2021-09-24] MEDS: SENNOSIDES 8.6 MG TAB PO SCH ×2 (09:12→14:43)
[2021-09-24] MEDS: FUROSEMIDE INJ 10 MG/ML 4 ML VIAL IV SCH (09:12)
[2021-09-24] MEDS: OLMESARTAN 20 MG TAB PO SCH (09:12)
[2021-09-24] MEDS: DULOXETINE HCL 30 MG DELAYED RELEASE PO SCH (09:12)
[2021-09-24] MEDS: DOCUSATE SODIUM 100 MG CAP PO SCH (09:12)
[2021-09-24 09:22] VITALS: BP 121/78
[2021-09-24] MEDS ORDERED: LORAZEPAM INJ 2 MG/ML VIAL IV NR (11:45)
[2021-09-24 12:10] VITALS: BP 123/82
[2021-09-24 16:12] VITALS: BP 112/69
== END 2021-09-24 18:37 | disposition short-term general hospital (02) | DRG 375 ==
LOC: ER 15:30 → ERHOLD 19:35 → MED/SURG3 20:34 → OBSVTOIN 09-08 09:27
PROC: 0W9G3ZZ Drainage of Peritoneal Cavity, Percutaneous Approach (ICD-10-PCS; 2021-09-07)
PROC: 0W9G3ZZ Drainage of Peritoneal Cavity, Percutaneous Approach (ICD-10-PCS; 2021-09-11)
PROC: 0W993ZZ Drainage of Right Pleural Cavity, Percutaneous Approach (ICD-10-PCS; 2021-09-11)
PROC: 0DBU4ZX Excision of Omentum, Percutaneous Endoscopic Approach, Diagnostic (ICD-10-PCS; principal; 2021-09-15 14:00)
PROC: 3E0436Z Introduction of Nutritional Substance into Central Vein, Percutaneous Approach (ICD-10-PCS; 2021-09-18)
PROC: 02HV33Z Insertion of Infusion Device into Superior Vena Cava, Percutaneous Approach (ICD-10-PCS; 2021-09-18)
DX: C78.6 Secondary malignant neoplasm of retroperitoneum and peritoneum (principal); C56.9 Malignant neoplasm of unspecified ovary; J90 Pleural effusion, not elsewhere classified; K76.6 Portal hypertension; J94.8 Other specified pleural conditions; N39.0 Urinary tract infection, site not specified; R18.0 Malignant ascites; E87.1 Hypo-osmolality and hyponatremia; I10 Essential (primary) hypertension; K74.60 Unspecified cirrhosis of liver; Z83.3 Family history of diabetes mellitus; Z82.49 Family history of ischemic heart disease and other diseases of the circulatory system; Z90.49 Acquired absence of other specified parts of digestive tract; Z98.84 Bariatric surgery status; R33.9 Retention of urine, unspecified; Z20.822 Contact with and (suspected) exposure to COVID-19; Z88.5 Allergy status to narcotic agent; E66.9 Obesity, unspecified; Z68.37 Body mass index [BMI] 37.0-37.9, adult; E87.70 Fluid overload, unspecified; Z98.890 Other specified postprocedural states; E03.9 Hypothyroidism, unspecified; K21.9 Gastro-esophageal reflux disease without esophagitis; N30.90 Cystitis, unspecified without hematuria; B36.8 Other specified superficial mycoses; D63.8 Anemia in other chronic diseases classified elsewhere; K59.00 Constipation, unspecified; E87.6 Hypokalemia; N31.9 Neuromuscular dysfunction of bladder, unspecified; M51.36 Other intervertebral disc degeneration, lumbar region; F32.A Depression, unspecified; R53.81 Other malaise
CPT/HCPCS: 32555; 36415; 36569; 49083; 71045; 71260; 74018; 74019; 74177; 74470; 76705; 80048; 80053; 81001; 82040; 82378; 82550; 82553; 82945; 82948; 83615; 83690; 83735; 84157; 84443; 84484; 85025; 85610; 85730; 86304; 87070; 87086; 87205; 88112; 88305; 88331; 88342; 89051; 93005; 94799; 96366; 99284; C1729; G0378; J0461; J0696; J1100; J1170; J1940; J1956; J2001; J2060; J2185; J2250; J2270; J2405; J2710; J3010; J7030; J7050; Q9967; U0002

== ENCOUNTER 2021-10-19 20:12 | Emergency (ER) | payer BC, OTHER ==
[~2021-10-19] VITALS: Ht 315 cm; Wt 99.3 kg
[~2021-10-19 20:12] MED LIST changes: +BENICAR20 MG PO; +HYDROCODON-ACE1 EAC9 PO; +LEVOFLOXACIN250 MG PO; +NP THYROID60 MG PO; +PANTOPRAZOLE SO40 MG PO; +SENEXON-S 50-81 EACH PO
[2021-10-19 21:00] LABS: CLARITY,URINE SL CLOUDY (CLEAR); COLOR,URINE AMBER (YELLOW); LEUKOCYTE ESTERASE ,URINE SMALL (NEGATIVE); NITRITE,URINE POSITIVE (NEGATIVE)
[2021-10-19 21:01] LABS: KETONES,URINE NEGATIVE (NEGATIVE); PROTEIN,URINE DIPSTICK TRACE (NEGATIVE); URINE UROBILINOGEN 2 mg/dL (0.2 - 1)
[2021-10-19 21:03] VITALS: BP 136/84
[2021-10-19 21:11] LABS: BACTERIA,URINE MANY /HPF
== END 2021-10-19 21:29 | disposition home or self-care (01) ==
LOC: ER 20:22
DX: R33.9 Retention of urine, unspecified (principal); I10 Essential (primary) hypertension; E03.9 Hypothyroidism, unspecified
CPT/HCPCS: 51700; 81001; 87086; 87186; 99282

== ENCOUNTER 2021-11-13 21:22 | Emergency (ER) | payer BC ==
[~2021-11-13] VITALS: Ht 165.1 cm; Wt 80.3 kg
[2021-11-13 21:56] LABS: BASOPHILS % 0.4 % (0.0-1.0); EOSINOPHILS % 0.1 % (0.0-6.0); HEMATOCRIT 31.6 % (34.2-44.1); HEMOGLOBIN 9.9 g/dL (12.0-16.0); LYMPHOCYTES # (AUTO) 2.5 (1.0-3.2); LYMPHOCYTES % 32.2 % (18.0-39.1); MEAN CORPUSCULAR HEMOGLOBIN 26.8 pg (28-32); MEAN CORPUSCULAR HGB CONC 31.3 g/dL (31-35); MEAN CORPUSCULAR VOLUME 85.6 fL (81-99); MONOCYTES # (AUTO) 0.7 (0.2-0.8); MONOCYTES % 9.4 % (4.4-11.3); NEUTROPHILS # (AUTO) 4.1 (2.1-6.9); NEUTROPHILS % 52.9 % (38.7-80.0); PLATELET COUNT 329 x10e3/uL (140-360); RED BLOOD COUNT 3.69 x10e6/uL (3.6-5.1); RED CELL DISTRIBUTION WIDTH 20.2 % (11.7-14.4)
[2021-11-13 22:03] LABS: INR 0.95; PROTHROMBIN TIME 13.6 seconds (11.9-14.5)
[2021-11-13 22:13] LABS: ALBUMIN 2.5 g/dL (3.5-5.0); ALBUMIN/GLOBULIN RATIO 0.6 (0.8-2.0); ANION GAP 15.4 mmol/L (8-16); CALCIUM 9.4 mg/dL (8.4-10.2); CREATININE, SERUM 1.01 mg/dL (0.57-1.11); POTASSIUM 4.4 mmol/L (3.5-5.1)
[2021-11-13 22:19] LABS: CREATINE KINASE MB 0.8 ng/mL (0-5.0)
[2021-11-13 23:17] LABS: CLARITY,URINE CLOUDY (CLEAR); COLOR,URINE ORANGE (YELLOW); KETONES,URINE 1+ (NEGATIVE); LEUKOCYTE ESTERASE ,URINE LARGE (NEGATIVE); NITRITE,URINE POSITIVE (NEGATIVE); PROTEIN,URINE DIPSTICK >=300 (NEGATIVE); URINE UROBILINOGEN >=8 mg/dL (0.2 - 1)
[2021-11-13 23:21] LABS: BACTERIA,URINE MODERATE /HPF; EPITHELIAL CELLS,URINE FEW /LPF; WBC,URINE (MAN) 21-50 /HPF (0-5)
[2021-11-13] MEDS ORDERED: MEROPENEM 1 GM in SODIUM CHLORIDE 0.9% 100 ML 100 ML IV STA (23:56)
[2021-11-14] MEDS ORDERED: MEROPENEM 1 GM VIAL ONE (00:10)
[2021-11-14] MEDS ORDERED: SODIUM CHLORIDE 0.9% 50ML 0 ML ONE (00:11)
[2021-11-14] MEDS ORDERED: SODIUM CHLORIDE 0.9% 100 ML ONE (00:12)
[2021-11-14 03:06] VITALS: BP 130/81
== END 2021-11-14 03:16 | disposition other institution (70) ==
LOC: ER 21:58
DX: R07.9 Chest pain, unspecified (principal); I26.99 Other pulmonary embolism without acute cor pulmonale; R06.02 Shortness of breath; U07.1 COVID-19; N39.0 Urinary tract infection, site not specified; Z16.12 Extended spectrum beta lactamase (ESBL) resistance; R94.31 Abnormal electrocardiogram [ECG] [EKG]; I10 Essential (primary) hypertension; E03.9 Hypothyroidism, unspecified; Z85.09 Personal history of malignant neoplasm of other digestive organs
CPT/HCPCS: 36415; 71045; 80053; 81001; 82550; 82553; 83605; 84484; 85025; 85610; 85730; 87040; 87086; 87186; 93005; 99284; J2185 ×2; J7050; U0002

== ENCOUNTER 2021-11-20 19:16 | Emergency (ER) | payer BC ==
[~2021-11-20] VITALS: Ht 165.1 cm; Wt 80.3 kg
[2021-11-20] MEDS ORDERED: HYDROMORPHONE 1MG/1ML INJ IV STA (20:15)
[2021-11-20] MEDS ORDERED: SODIUM CHLORIDE 0.9% 1000ML 1,000 ML IV STA ×2 (20:15→22:53)
[2021-11-20] MEDS ORDERED: ONDANSETRON HCL INJ 2MG/ML 2ML 2 MG/ML VIAL IV STA (20:15)
[2021-11-20 21:33] LABS: INR 0.96; PROTHROMBIN TIME 13.7 seconds (11.9-14.5)
[2021-11-20 21:34] LABS: BASOPHILS % 0.3 % (0.0-1.0); EOSINOPHILS % 0.2 % (0.0-6.0); HEMATOCRIT 37.3 % (34.2-44.1); HEMOGLOBIN 11.8 g/dL (12.0-16.0); LYMPHOCYTES # (AUTO) 1.4 (1.0-3.2); LYMPHOCYTES % 20.9 % (18.0-39.1); MEAN CORPUSCULAR HEMOGLOBIN 27.8 pg (28-32); MEAN CORPUSCULAR HGB CONC 31.6 g/dL (31-35); MEAN CORPUSCULAR VOLUME 87.8 fL (81-99); MONOCYTES # (AUTO) 0.5 (0.2-0.8); MONOCYTES % 8.2 % (4.4-11.3); NEUTROPHILS # (AUTO) 4.4 (2.1-6.9); NEUTROPHILS % 67.5 % (38.7-80.0); PARTIAL THROMBOPLASTIN TIME 62.1 seconds (23.8-35.5); PLATELET COUNT 478 x10e3/uL (140-360); RED BLOOD COUNT 4.25 x10e6/uL (3.6-5.1); RED CELL DISTRIBUTION WIDTH 21.4 % (11.7-14.4)
[2021-11-20 21:46] LABS: ALANINE AMINOTRANSFERASE 12 IU/L (0-55); ALBUMIN 2.4 g/dL (3.5-5.0); ALBUMIN/GLOBULIN RATIO 0.5 (0.8-2.0); ALKALINE PHOSPHATASE 166 IU/L (40-150); ANION GAP 19.4 mmol/L (8-16); BLOOD UREA NITROGEN 14 mg/dL (7-26); BUN/CREATININE RATIO 17 (6-25); CALCIUM 9.2 mg/dL (8.4-10.2); CARBON DIOXIDE 25 mmol/L (22-29); CHLORIDE 94 mmol/L (98-107); CREATINE KINASE 37 IU/L (29-168); CREATININE, SERUM 0.84 mg/dL (0.57-1.11); EST GLOMERULAR FILTRATION RATE 68 ML/MIN (60-); GLUCOSE 123 mg/dL (74-118); POTASSIUM 4.4 mmol/L (3.5-5.1); SODIUM 134 mmol/L (136-145)
[2021-11-20] MEDS ORDERED: SODIUM CHLORIDE 0.9% 50ML 50 ML ONE (22:49)
[2021-11-20] MEDS ORDERED: IOPAMIDOL 370 MG/ML 200 ML INFUS..BTL INJ ONE (22:49)
[2021-11-20] MEDS ORDERED: METOCLOPRAMIDE HCL 10 MG/2ML VIAL IV ONE (23:00)
[2021-11-21] MEDS ORDERED: PROMETHAZINE 25MG/ NS 50ML (IV) IV ONE (00:30)
[2021-11-21] MEDS ORDERED: PHENERGAN SUPP25 MG PR (01:43)
[2021-11-21 02:40] VITALS: BP 127/93
== END 2021-11-21 02:15 | disposition home or self-care (01) ==
LOC: ER 19:31
DX: R10.13 Epigastric pain (principal); K56.7 Ileus, unspecified; R11.2 Nausea with vomiting, unspecified; I10 Essential (primary) hypertension; E03.9 Hypothyroidism, unspecified; Z85.09 Personal history of malignant neoplasm of other digestive organs; Z98.84 Bariatric surgery status
CPT/HCPCS: 36415; 71045; 74177; 80053; 82550; 82553; 83880; 84484; 85025; 85610; 85730; 93005; 99284; C9113; J2405; J2550; J2765; J7030 ×2; Q9967